=== PATIENT | female | born 1975 | race Caucasian/White ===

== ENCOUNTER 2018-03-24 15:21 | Outpatient (CLI) | payer OTHER ==
[~2018-03-24 15:21] MED LIST: DOCU100C33 PO; IBUP-1222 PO; OXYC-302 PO; PREN1TAB56 PO
== END 2018-03-24 23:59 | disposition home or self-care (01) ==
LOC: CFH 15:21
PROVIDERS: ATTEND Obstetrics & Gynecology
DX: Z12.31 Encounter for screening mammogram for malignant neoplasm of breast (principal)
CPT/HCPCS: 77067